=== PATIENT | male | born 1975 | race Caucasian/White ===

== ENCOUNTER 2021-02-22 13:24 | Outpatient (RCR) | payer OTHER, SELFPAY | END 2021-05-07 23:59 | LOC: IMMUN 13:24 | PROVIDERS: PCP Nurse Practitioner Primary Care; Visit Provider Family Medicine | DX: Z23 Encounter for immunization (principal) | CPT/HCPCS: 0001A; 0002A; 91300 ==

== ENCOUNTER 2021-03-17 09:33 | Observation (INO) | payer OTHER, SELFPAY ==
[2021-03-14 12:25] VITALS: BMI 39.8
[2021-03-17] VITALS (7 sets, daily range): BP systolic 125–155; BP diastolic 72–98; PULSE 79–106; RESP 15–20; TEMP 36.7–38.3; O2SAT 93–99; BMI 39.7; BMI 39.8
--- NOTE | 2021-03-17 09:57 | CT_ITS ---
STUDY: CT SOFT TISSUE NECK WITH CONTRAST REASON FOR EXAM: Male, 45 years old. right tonsillar swelling RADIATION DOSAGE (If Supplied By Facility): CTDIvol = ( 18.78 ) mGy, DLP = ( 642.75 ) mGycm TECHNIQUE: The patient was scanned in a multi-detector CT scanner. High resolution transaxial imaging was performed following intravenous administration of IV 75mL Isovue-370. Sagittal and coronal images were reconstructed. Individualized dose optimization techniques were used for this CT. COMPARISON: None. FINDINGS: Normal bilateral parotid glands. Normal bilateral assistant oceanographer spaces. Normal bilateral parapharyngeal spaces. Normal bilateral carotid spaces. Normal bilateral sublingual and submandibular glands and spaces. Normal visualized nasopharynx. Normal retropharyngeal space. Normal perivertebral space. Enlargement of the right lingual tonsil containing a 1 cm round area of decreased attenuation worrisome for tonsillitis with a peritonsillar abscess. Mucosal thickening in the right side extends inferiorly into the hypopharynx. The visualized tongue, tongue base and oropharynx are normal. The visualized cervical lymph nodes (levels I-) are within normal size limits, and maintain normal morphology. There is no demonstrated solid or cystic mass lesion. There is no abnormal contrast enhancement. Normal epiglottis, bilateral vallecula and hypopharynx. The pre-epiglottic and paraglottic adipose spaces are normal. Normal visualized bilateral piriform sinuses, aryepiglottic folds, vocal cords, and arytenoid-cricoid articulations. Normal subglottic trachea. Normal bilateral lobes of the thyroid gland. Normal visualized pulmonary apices. Normal visualized paranasal sinuses. Normal visualized cervical spine. CT/Soft Tissue Neck WITH Contrast IMPRESSION: Right-sided tonsillitis with a 1 cm peritonsillar abscess. Electronically Signed: Buck Woodall MD at 11:58 EDT Tel , Service support ,
[2021-03-17 10:56] LABS: Absolute Lymphocyte Count 1.25 X10^3/uL (0.83-4.51); Absolute Neutrophil Count 8.2 X10^3/uL (2.0-7.7); Basophil# 0.04 X10^3/uL; Basophil% 0.4 % (0-1); Eosinophil# 0.01 X10^3/uL; Eosinophils% 0.1 % (0-5); Hemoglobin 13.6 g/dL (13.0-16.5); Lymphocyte # 1.25 X10^3/ul (0.83-4.51); Mean Corp Hgb Conc 32.4 g/dL (32-36); Mean Corpuscular Hgb 28.3 pg (27.0-32.0); Mean Corpuscular Volume 87.5 fL (80-94); Mean Platelet Vol. 9.8 fl (6.2-12.0); Monocyte% 8.6 % (0-10); NRBC Flagged by Analyzer 0 % (0-5); Neutrophil # 8.22 X10^3/uL (2.7-7.7); Neutrophil % 78.7 % (47-70); Platelet Count 202 K/mm3 (150-450); RBC Distribution Width CV 13.2 % (11.6-14.6); RBC Distribution Width SD 42.8 fl (35.1-43.9); White Blood Count 10.4 K/mm3 (4.4-11.0)
[2021-03-17] MEDS: Morphine 4 MG/ML Syringe IV (10:57)
[2021-03-17] MEDS: Ondansetron 4 MG/2 ML Vial IV (10:57)
[2021-03-17 11:05] LABS: Anion Gap 5 (5-15); BUN 14 mg/dL (7-18); BUN/Creat Ratio 10.4 RATIO (10-20); Calcium,Total 9.1 mg/dL (8.5-10.1); Chloride 106 mmol/L (98-107); Creatinine, Serum 1.34 mg/dL (0.70-1.30); EST Glomerular Filtration Rate 61 mL/min (>60); Est Glom Filt Rate - Afr Amer 74 mL/min (>60); Glucose 101 mg/dL (74-106); Potassium 3.9 mmol/L (3.5-5.1); Sodium Level 138 mmol/L (136-145)
--- NOTE | 2021-03-17 12:24 | ED.DCSUM_ITS ---
- ER Visit Summary Date of Service: 03/17/21 Chief Complaint: Sore throat History of Present Illness: The patient is a 45 M presenting with sore throat x2 days. Patient went to urgent care this morning and was sent to the ED for concern of tonsillar abscess. He complains of painful swallowing but no diffi culty swallowing, no drooling. Denies fever. Denies other complaints. Physical Examination: Vitals are stable. Patient is afebrile. Alert no acute distress. HEENT exam right tonsillar swelling. Neck is supple. Lungs are clear and equal bilaterally. Heart is regular rate and rhythm. Abdomen is soft nontender nondistended. Extremities are unremarkable. Skin is warm and dry. Remainder of exam is unremarkable. Emergency Department Course and Treatment: Patient states rapid strep at urgent care was negative. CBC, chemistries unremarkable. He was given IV fluids, morphine, Zofran. CT soft tissue neck shows right-sided tonsillitis with a 1 cm peritonsillar abscess. He continued to have pain was given Dilaudid IV. He was given Decadron, Unasyn. Repeat temperature is 100.9. He was given Tylenol. He is able to swallow only with a significant amount of pain. Discussed with Dr. Naik and the hospitalist and patient will be admitted for observation Disposition: Observation Impression: Peritonsillar abscess This note was generated with [employer] dictation software. It may contain incorrect words, spelling, and punctuation that were not noted in review of the chart prior to signing ED Disposition - Plan for ED Patient: Disposition: Acute Care [facility]
[2021-03-17] MEDS: 0.9% Normal Saline 1,000 ML 999 ML IV (12:48)
[2021-03-17] MEDS: HYDROmorphone 1 MG/ML Syringe IV (13:10)
[2021-03-17] MEDS: dexAMETHasone 4 MG Tablet PO (13:47)
[2021-03-17] MEDS: Acetaminophen 500 MG Tablet 1000 MG PO (14:05)
--- NOTE | 2021-03-17 14:39 | HP.PCM_ITS ---
<Ko Pepper - Last Filed: 03/17/21 14:39> Problem List (1) Peritoneal abscess Status: Acute (2) Tonsillitis Status: Acute (3) Lumbar radiculopathy Status: Chronic (4) Lumbar strain Status: Resolved History of Present Illness Date of Admission: 03/17/21 Chief Complaint: Right-sided neck swelling and sore throat Patient is a 45-year-old male who presents to the ED at [facility] on 03/17/2021 with a chief complaint of right-sided neck swelling and sore throat. Patient reports that for the past 2 days he has had increased neck swelling and sore throat that has been getting progressively worse. Patient reports that this morning he went to an urgent care clinic thinking that he might of had strep throat, rapid strep at the urgent care was negative. Patient denies anything making it worse and has denied trying any therapies to alleviate this pain by swelling. Vitals in the ED have been unremarkable; patient is afebrile, not tachycardic or tachypneic. CBC unremarkable. BMP reveals mildly elevated creatinine at 1.34, otherwise unremarkable. Soft tissue neck CT demons trated a right-sided tonsillitis with a 1 cm peritonsillar abscess. Unasyn initiated in the ED and patient will be admitted to medical surgical floor 3. Past Medical History Past Medical History (Chronic Problems): Chronic Problems (Last Reviewed 02/13/21 @ 09:27 by [place] Nino) Lumbar radiculopathy (Chronic) Allergies No Known Allergies Allergy (Verified 03/17/21 10:06) Home Medications: Ambulatory Orders Medication Instructions Recorded citalopram 20 mg tablet 40 mg PO DAILY 02/06/21 fenofibrate 40 mg tablet 145 mg PO DAILY 02/06/21 rosuvastatin 10 mg tablet 10 mg PO DAILY 02/06/21 Ergocalciferol [Vitamin D] 50,000 unit PO Q7D 03/17/21 Testosterone Cypionate [Testone 0.3 ml IM QWEEK 03/17/21 Cik] traZODone [Desyrel] 100 mg PO QHS 03/17/21 Surgical History: arthroscopy, knee Psychiatric History: Anxiety, Depression Smoking Status: Former smoker Alcohol: Occasional Drugs: None - *Family History Maternal History Items: Unknown - Patient unable to remember any maternal medical history Paternal History Items: Unknown - Patient unable to remember any paternal medical history Review of Systems Constitutional: Denies: Chills, Fever, Weight Change HEENT: Denies: Head Aches, Sinus Congestion, Sinus Drainage Cardiovascular: Denies: Chest Pain, Palpitations Respiratory: Denies: Cough, Shortness of breath at rest, Sputum production Gastrointestinal: Denies: Abdominal Pain, Nausea, Vomiting Genitourinary: Denies: Dysuria Musculoskeletal: Denies: Joint Pain, Joint Tenderness Skin: Denies: Rash, Wounds Neurological: Denies: Numbness, Tingling, Focal weakness Psychiatric: Denies: Anxiety, Depression, Homicidal Ideations, Suicidal Ideations Hematologic/ Lymphatic: Denies: Easy Bruising, Easy Bleeding VTE Information - Inpt Only VTE Present on Admission: No Patient Problems: Active and Suspected Problems (Last Reviewed 02/13/21 @ 09:27 by [place] Nino) Peritoneal abscess (Acute) Tonsillitis (Acute) Subjective: Patient is a 45-year-old male in no acute distress who is resting comfortably in bed, alert and oriented x3. Patient endorses a sore throat and right-sided neck swelling throughout his lower jaw. Denies fever, chills, N/V/D, chest pain, palpitations, shortness of breath, lower extremity pain. Objective: Clinical Impression(s) from Imaging Studies Soft Tissue Neck CT 03/17/21 09:57 IMPRESSION: Right-sided tonsillitis with a 1 cm peritonsillar abscess. Electronically Signed: Buck Woodall MD at 11:58 EDT Tel , Service support , - Physical Exam Vitals/I&O's: Vital Signs Temp Pulse Resp BP Pulse Ox 98.9 F 96 18 125/72 H 93 03/17/21 14:02 03/17/21 14:02 03/17/21 14:02 03/17/21 14:02 03/17/21 14:02 Oxygen Delivery Method Room Air Weight: 301 lb 5.95 oz Body Mass Index (BMI) 39.7 Intake and Output for Last 24 Hours 04/16/21 04/17/21 04/18/21 23:59 23:59 23:59 Intake Total 1000 / 1000 Balance 1000 / 1000 General: Alert, Oriented x3, Cooperative HEENT: Atraumatic, PERRLA, EOMI, Normocephalic Neck: Supple, No JVD, Negative Carotid Bruits, - - Mild swelling about the parotid, tonsillar, submental and submandibular nodes, pain to palpation about the same. Lungs: Clear to auscultation, Normal air movement Cardiovascular: Regular rate, No murmurs Abdomen: Bowel Sounds Present, Soft, Non Tender Extremities: No edema, Capillary Refill Less than 3 Seconds Skin: No rashes, No breakdown Musculoskeletal: No Tenderness to Palpation of Joints or Extremities Neurological: Cranial nerves II-XII grossly intact Psych/Mental Status: Normal Affect, Appropriate, Anxious Laboratory Results 03/17/21 10:45: WBC 10.4, RBC 4.80, Hgb 13.6, Hct 42.0, MCV 87.5, MCH 28.3, MCHC 32.4, RDW Std Deviation 42.8, RDW Coeff of Lida 13.2, Plt Count 202, MPV 9.8, Immature Gran % (Auto) 0.200, Neut % (Auto) 78.7 H, Lymph % (Auto) 12.0 L, [place] % (Auto) 8.6, Eos % (Auto) 0.1, Baso % (Auto) 0.4, Absolute Neuts (auto) 8.2 H, Absolute Lymphs (auto) 1.25, Nucleated RBC % 0 03/17/21 10:45: Sodium 138, Potassium 3.9, Chloride 106, Carbon Dioxide 27.0, Anion Gap 5, BUN 14, Creatinine 1.34 H, Estim Creat Clear Calc 79.50, Est GFR (MDRD) Af Amer 74, Est GFR (MDRD) Non-Af 61, BUN/Creatinine Ratio 10.4, Glucose 101, Calcium 9.1 Current Medications Ampicillin Sodium/Sulbactam (Sodium 3 gm/ Sodium Chloride) 112 mls @ 150 mls/hr IV X1 ONE Stop: 03/17/21 14:42 Last Admin: 03/17/21 14:06 Dose: 150 mls/hr Documented by: Assessment/Plan All Active Problems (Last Reviewed 02/13/21 @ 09:27 by [place] Nino) Peritoneal abscess (Acute) Tonsillitis (Acute) Lumbar strain (Resolved) Patient is a 45-year-old male who presents to the ED at [facility] on 03/17/2021 with a chief complaint of right-sided neck swelling and sore throat, that is getting progressively worse. Evaluation in the ED was significant for right-sided tonsillitis lightest with a 1 cm peritonsillar abscess by neck CT. Patient was initiated on Unasyn and a hospital medicine consultation was requested. On my evaluation patient appeared in no acute distress, however did demonstrate mild right-sided neck swelling and pain to palpation about the parotid, tonsillar, submandibular and submental nodes. Patient has remained afebrile and vitals have been unremarkable. BMP did reveal a mildly elevated creatinine of unclear etiology at 1.34. Patient reports no significant past medical history although previous medications include citalopram, fenofibrate, rosuvastatin, testosterone and vitamin D supplementation. Patient will be admitted to medical surgical floor for observation and Unasyn will be continued. Anticipate discharge tomorrow morning. 1) Peritonsillar abscess. Patient afebrile and vital signs stable. Confirmed by neck CT as above. CBC and BMP unremarkable. Swelling and pain to palpation about the right side of the neck. Mallampati class III, more likely related to patient's large body habitus. Plan; admit to medical surgical floor for observation, continue Unasyn. 2) Tonsillitis. Same as above 3) Elevated creatinine Creatinine currently 1.34, unclear etiology. Plan; continue IV fluids, BMP in the a.m. DVT prophylaxis -low risk, early ambulation advised Patient seen by Ko Pepper PA-C, under the supervision of Dr. Denney. <Shaji Denney F - Last Filed: 03/17/21 17:09> History of Present Illness The patient is a 45 year old M [] Past Medical History Allergies No Known Allergies Allergy (Verified 03/17/21 10:06) - Physical Exam Vitals/I&O's: Vital Signs Temp Pulse Resp BP Pulse Ox 98.0 F 92 18 145/75 H 97 03/17/21 16:49 03/17/21 15:01 03/17/21 15:01 03/17/21 15:01 03/17/21 15:01 Oxygen Delivery Method Room Air Weight: 302 lb 0.533 oz Body Mass Index (BMI) 39.8 Intake and Output for Last 24 Hours 03/15/21 03/16/21 03/17/21 23:59 23:59 23:59 Intake Total 1111 Balance 1111 Laboratory Results 03/17/21 10:45: WBC 10.4, RBC 4.80, Hgb 13.6, Hct 42.0, MCV 87.5, MCH 28.3, MCHC 32.4, RDW Std Deviation 42.8, RDW Coeff of [place] 13.2, Plt Count 202, MPV 9.8, Immature Gran % (Auto) 0.200, Neut % (Auto) 78.7 H, Lymph % (Auto) 12.0 L, [place] % (Auto) 8.6, Eos % (Auto) 0.1, Baso % (Auto) 0.4, Absolute Neuts (auto) 8.2 H, Absolute Lymphs (auto) 1.25, Nucleated RBC % 0 03/17/21 10:45: Sodium 138, Potassium 3.9, Chloride 106, Carbon Dioxide 27.0, Anion Gap 5, BUN 14, Creatinine 1.34 H, Estim Creat Clear Calc 79.50, Est GFR (MDRD) Af Amer 74, Est GFR (MDRD) Non-Af 61, BUN/Creatinine Ratio 10.4, Glucose 101, Calcium 9.1 Current Medications Acetaminophen (Acetaminophen 325 Mg Tablet) 650 mg PO Q6H PRN PRN PRN Reason: Pain Score 1-10/Temp > 100.7 F Atorvastatin Calcium (Atorvastatin Calcium 20 Mg Tablet) 20 mg PO QHS ANAND Citalopram Hydrobromide (Citalopram 40 Mg Tablet) 40 mg PO DAILY ANAND Fenofibrate (F[facility] 145 Mg Tablet) [facility] Sodium Chloride () 250 mls @ 15 mls/hr IV .[id number] PRN PRN Reason: Saline Flush Ampicillin Sodium/Sulbactam (Sodium 3 gm/ Sodium Chloride) 112 mls @ 150 mls/hr IV Q8 REPLACED BY [facility] Methylprednisolone (Methylprednisolone Dosepak 4 Mg Box) 16 mg PO 1700 ANAND; Taper Stop: 03/22/21 08:59 Last Admin: 03/17/21 16:51 Dose: 16 mg Documented by: Ondansetron HCl (Ondansetron 4 Mg/2 Ml Vial) 4 mg IV Q8H PRN PRN PRN Reason: NAUSEA/VOMITING Sodium Chloride (0.9% Saline Lock 10 Ml Syringe) 10 - 40 ml IV UD PRN PRN Reason: SALINE FLUSH Addendum: Dr. Denney I personally examined the patient and reviewed the chart. I agree with the above. 45-year-old male presents from home with a sore throat. It started about 2 days ago, he is a [id number] at home so he went to the urgent care for evaluation and states that he was told that it did not have strep throat. He was told to come to the ER because of the swelling in the back of his throat he had a CT scan of his neck demonstrated a 1 cm right peritonsillar abscess. He has soreness with swallowing and there is concern by the ED physician that he would not be able to take oral medications so they recommended admission to him. I discussed with him that he is an observation admission only and will likely need to be discharged home tomorrow. In the meantime we will place him on IV Unasyn as well as a Medrol Dosepak to try to decrease swelling and will consult ENT for observation and follow-up. Otherwise he feels fine and denies any fevers or chills. OBSV E&M: [id number] Initial observation care L2
[2021-03-17] MEDS: MethylPREDNISolone DosePak 4 MG BOX PO ×2 (16:51→21:19)
[2021-03-17] MEDS: Acetaminophen 325 MG Tablet 650 MG PO (21:16)
[2021-03-17] MEDS: 0.9% Saline Lock 10 ML Syringe IV (21:16)
[2021-03-17] MEDS: Ketorolac 15 MG/ML Vial IV (21:16)
[2021-03-17] MEDS: Atorvastatin Calcium 20 MG Tablet PO (21:20)
[2021-03-17] MEDS: Fenofibrate 145 MG Tablet PO (22:35)
[2021-03-17] MEDS: traZODone 100 MG Tablet PO (22:35)
[2021-03-17] MEDS: Citalopram 40 MG TABLET PO (22:35)
[2021-03-18 02:53] VITALS: BP 104/65; PULSE 52; RESP 18; TEMP 36.4; O2SAT 95
[2021-03-18] MEDS: 0.9% Saline Lock 10 ML Syringe IV ×2 (05:22→13:40)
[2021-03-18 07:05] LABS: Absolute Neutrophil Count 9.9 X10^3/uL (2.0-7.7); Basophil# 0.01 X10^3/uL; Basophil% 0.1 % (0-1); Hematocrit 41.9 % (40-54); Hemoglobin 13.4 g/dL (13.0-16.5); Lymphocyte % 6.3 % (19-41); Mean Corpuscular Hgb 28.6 pg (27.0-32.0); Mean Corpuscular Volume 89.5 fL (80-94); Mean Platelet Vol. 10.3 fl (6.2-12.0); Monocyte# 0.44 X10^3/uL; NRBC Flagged by Analyzer 0 % (0-5); Neutrophil # 9.93 X10^3/uL (2.7-7.7); Neutrophil % 89.2 % (47-70); Platelet Count 214 K/mm3 (150-450); RBC Distribution Width CV 12.9 % (11.6-14.6); RBC Distribution Width SD 42.3 fl (35.1-43.9); Red Blood Count 4.68 M/mm3 (4.6-6.2); White Blood Count 11.1 K/mm3 (4.4-11.0)
[2021-03-18 07:28] LABS: Anion Gap 7 (5-15); BUN 19 mg/dL (7-18); BUN/Creat Ratio 15.4 RATIO (10-20); Calcium,Total 9.5 mg/dL (8.5-10.1); Chloride 103 mmol/L (98-107); Creatinine, Serum 1.23 mg/dL (0.70-1.30); EST Glomerular Filtration Rate 68 mL/min (>60); Est Glom Filt Rate - Afr Amer 82 mL/min (>60); Estimated Creatinine Clearance 86.61 ml/min; Glucose 131 mg/dL (74-106); Potassium 4.1 mmol/L (3.5-5.1); Sodium Level 136 mmol/L (136-145)
[2021-03-18 09:00] VITALS: BP 117/70; PULSE 85; RESP 18; TEMP 36.5; O2SAT 95
[2021-03-18] MEDS: MethylPREDNISolone DosePak 4 MG BOX PO ×2 (09:01→12:32)
--- NOTE | 2021-03-18 12:54 | DCINST_ITS ---
- Discharge Diagnoses Current Active Problems: Current Active and Chronic Problems (Last Reviewed 02/13/21 @ 09:27 by [place] Nino) Peritoneal abscess (Acute) Tonsillitis (Acute) Lumbar radiculopathy (Chronic) You will use the following diet at home:: No restrictions Your food should be the consistency of: Regular Your liquids should be the consistency of: Regular/Thin Discharge Activity: Return to Normal Activity Allergies/Adverse Reactions: Allergies No Known Allergies Allergy (Verified 03/17/21 10:06) Medications to take at Discharge citalopram 20 mg tablet 40 mg PO DAILY 02/06/21 fenofibrate 40 mg tablet 145 mg PO DAILY 02/06/21 rosuvastatin 10 mg tablet 10 mg PO DAILY 02/06/21 Ergocalciferol [Vitamin D] 50,000 unit PO Q7D 03/17/21 Testosterone Cypionate [Testone Cik] 0.3 ml IM QWEEK 03/17/21 traZODone [Desyrel] 100 mg PO QHS 03/17/21 Amox/Clavulanate Tablet [Augmentin Tablet] 875 mg PO Q12H #20 tab 03/18/21 The following prescriptions were given: Amox/Clavulanate Tablet [Augmentin Tablet] 875 mg PO Q12H #20 tab Transmission Status: Pending to [facility]/pharmacy #[id number] Primary Care Physician: Tamra Pena NP, [employer]BI[employer]PLICATION DEVELOPER-C [Primary Care Provider] - Please follow up with your Primary Care Physician in: Within the next 2 weeks Test Results: Test results from this visit will be discussed in further detail at your follow- up appointment, if applicable. Proposed Discharge Date: 03/18/21
--- NOTE | 2021-03-18 12:56 | PCM.DC.SUM ---
Discharge Date and Diagnosis - Problem List Patient Problems: Active and Suspected Problems (Last Reviewed 02/13/21 @ 09:27 by Jamaica Nino) Peritoneal abscess (Acute) Tonsillitis (Acute) Date of Admission: 03/17/21 Date of Discharge: 03/18/21 - Primary Discharge Diagnosis Acute Problems: Active Problems (Last Reviewed 02/13/21 @ 09:27 by Jamaica Nino) Peritoneal abscess (Acute) Tonsillitis (Acute) - Secondary Discharge Diagnosis Chronic Problems: Chronic Problems (Last Reviewed 02/13/21 @ 09:27 by Jamaica Nino) Lumbar radiculopathy (Chronic) Hospital Course and Treatment Imaging Results: Clinical Impression(s) from Imaging Studies Soft Tissue Neck CT 03/17/21 09:57 IMPRESSION: Right-sided tonsillitis with a 1 cm peritonsillar abscess. Electronically Signed: Buck Woodall MD at 11:58 EDT Tel , Service support , Summary of Care Provided: Patient is a 45-year-old male who presented to the ED at [facility] on 03/17/2021 with a chief complaint of right-sided neck swelling and progressively worsening sore throat. CT demonstrated right-sided tonsillitis lightest with a 1 cm peritonsillar abscess. Patient reports significant improvement from yesterday regarding his sore throat and swollen neck. Physical exam confirms the same and patient appears to be responding well to antibiotics. CBC and BMP unremarkable. Vital signs stable throughout admission. Considering the patient's improvement in symptoms and lack of any other symptomology, ENT consult was canceled. Patient to be discharged today on Augmentin 875 twice daily x 10 days. 1) Peritonsillar abscess. Patient afebrile and vital signs stable. Swelling about the parotid, tonsillar, submandibular and submental nodes has decreased significantly since admission. CBC and BMP unremarkable. Plan; discharge today after antibiotic infusion is complete, Augmentin 875 twice daily x10 days initiated at discharge, follow-up with primary care provider within the next 2 weeks. 2) Tonsillitis. Same as above 3) Elevated creatinine Resolvd, creatinine currently 1.23. Patient seen by Ko Pepper PA-C, under the supervision of Dr. Galvan. Patient Problems: Active and Suspected Problems (Last Reviewed 02/13/21 @ 09:27 by [place] Nino) Peritoneal abscess (Acute) Tonsillitis (Acute) Subjective: Patient is a 45-year-old male comes the resting in bed, alert and oriented x3. Patient reports significant improvement of his symptoms; related to his neck swelling. Patient still does endorse mild sore throat, but patient understands that this will resolve over the next few days. Denies fever, chills, N/V/D, chest pain, palpitations, shortness of breath. - Physical Exam Vitals/I&O's: Vital Signs Temp Pulse Resp BP Pulse Ox 97.7 F L 85 18 117/70 95 03/18/21 09:00 03/18/21 09:00 03/18/21 09:00 03/18/21 09:00 03/18/21 09:00 Oxygen Delivery Method Room Air Weight: 302 lb 0.533 oz Body Mass Index (BMI) 39.8 Intake and Output for Last 24 Hours 03/16/21 03/17/21 03/18/21 23:59 23:59 23:59 Intake Total 1724 / 1724 462 / 462 Balance 1724 / 1724 462 / 462 General: Alert, Oriented x3, Cooperative HEENT: Atraumatic, PERRLA, EOMI, Normocephalic Neck: Supple, No JVD, Negative Carotid Bruits, - - Swelling about the parotid, tonsillar, submental and submandibular nodes significantly decreased from admission. Lungs: Clear to auscultation, Normal air movement Cardiovascular: Regular rate, No murmurs Abdomen: Bowel Sounds Present, Soft, Non Tender Extremities: No edema, Capillary Refill Less than 3 Seconds Skin: No rashes, No breakdown Musculoskeletal: No Tenderness to Palpation of Joints or Extremities Neurological: Cranial nerves II-XII grossly intact Psych/Mental Status: Normal Affect, Appropriate Laboratory Results 03/18/21 06:40: WBC 11.1 H, RBC 4.68, Hgb 13.4, Hct 41.9, MCV 89.5, MCH 28.6, MCHC 32.0, RDW Std Deviation 42.3, RDW Coeff of Lida 12.9, Plt Count 214, MPV 10.3, Immature Gran % (Auto) 0.400, Neut % (Auto) 89.2 H, Lymph % (Auto) 6.3 L, Becker % (Auto) 4.0, Eos % (Auto) 0.0, Baso % (Auto) 0.1, Absolute Neuts (auto) 9.9 H, Absolute Lymphs (auto) 0.70 L, Nucleated RBC % 0 03/18/21 06:40: Sodium 136, Potassium 4.1, Chloride 103, Carbon Dioxide 26.0, Anion Gap 7, BUN 19 H, Creatinine 1.23, Estim Creat Clear Calc 86.61, Est GFR (MDRD) Af Amer 82, Est GFR (MDRD) Non-Af 68, BUN/Creatinine Ratio 15.4, Glucose 131 H, Calcium 9.5 Current Medications Acetaminophen (Acetaminophen 325 Mg Tablet) 650 mg PO Q6H PRN PRN PRN Reason: Pain Score 1-10/Temp > 100.7 F Last Admin: 03/17/21 21:16 Dose: 650 mg Documented by: Atorvastatin Calcium (Atorvastatin Calcium 20 Mg Tablet) 20 mg PO QHS [facility] Last Admin: 03/17/21 21:20 Dose: 20 mg Documented by: Citalopram Hydrobromide (Citalopram 40 Mg Tablet) 40 mg PO DAILY@2200 [facility] Last Admin: 03/17/21 22:35 Dose: 40 mg Documented by: Fenofibrate (Fenofibrate 145 Mg Tablet) 145 mg PO DAILY@2200 [facility] Last Admin: 03/17/21 22:35 Dose: 145 mg Documented by: Sodium Chloride () 250 mls @ 15 mls/hr IV .[id number] PRN PRN Reason: Saline Flush Ampicillin Sodium/Sulbactam (Sodium 3 gm/ Sodium Chloride) 112 mls @ 150 mls/hr IV Q8 [facility] Last Infusion: 03/18/21 06:07 Dose: Infused Documented by: Methylprednisolone (Methylprednisolone Dosepak 4 Mg Box) 4 mg PO 0800,1200,1700 [facility]; Taper Stop: 03/22/21 08:59 Last Admin: 03/18/21 12:32 Dose: 4 mg Documented by: Ondansetron HCl (Ondansetron 4 Mg/2 Ml Vial) 4 mg IV Q8H PRN PRN PRN Reason: NAUSEA/VOMITING Sodium Chloride (0.9% Saline Lock 10 Ml Syringe) 10 - 40 ml IV UD PRN PRN Reason: SALINE FLUSH Last Admin: 03/18/21 05:22 Dose: 10 ml Documented by: Trazodone HCl (Trazodone 100 Mg Tablet) 100 mg PO QHS [facility] Last Admin: 03/17/21 22:35 Dose: 100 mg Documented by: Discharge Diet: No Restrictions Discharge Activity: Return to Normal Activity Home Medications: Medications to take at Discharge citalopram 20 mg tablet 40 mg PO DAILY 02/06/21 fenofibrate 40 mg tablet 145 mg PO DAILY 02/06/21 rosuvastatin 10 mg tablet 10 mg PO DAILY 02/06/21 Ergocalciferol [Vitamin D] 50,000 unit PO Q7D 03/17/21 Testosterone Cypionate [Testone Cik] 0.3 ml IM QWEEK 03/17/21 traZODone [Desyrel] 100 mg PO QHS 03/17/21 Amox/Clavulanate Tablet [Augmentin Tablet] 875 mg PO Q12H #20 tab 03/18/21 Following Prescriptions Were Given to Patient: Amox/Clavulanate Tablet [Augmentin Tablet] 875 mg PO Q12H #20 tab Transmission Status: Pending to [id number] Primary Care Physician: Tamra Pena NP, [employer] [Primary Care Provider] - Please follow up with your Primary Care Physician in: Within the next 2 weeks Disposition: Home Minutes spent on discharge:: 35 Patient Condition:: Good Medical Necessity - Tobacco Use Smoking Status: Former smoker Tobacco Use: Cigarettes Meaningful Use Info Meaningful Use Diagnoses (Choose all that apply): None applicable
[2021-03-18 13:46] VITALS: BP 125/77; PULSE 82; RESP 18; TEMP 36.9; O2SAT 95
[2021-03-18 15:05] VITALS: BP 125/77; PULSE 82; RESP 18; TEMP 36.9; O2SAT 95
--- NOTE | 2021-03-18 15:20 | PHA.DC.MR ---
Pharmacy Service has performed discharge medication reconciliation for this patient. The patient's discharge medication list was reviewed for discrepancies and discrepancies were resolved. Home Medications citalopram 20 mg tablet 40 mg PO DAILY 02/06/21 fenofibrate 40 mg tablet 145 mg PO DAILY 02/06/21 rosuvastatin 10 mg tablet 10 mg PO DAILY 02/06/21 Ergocalciferol [Vitamin D] 50,000 unit PO Q7D 03/17/21 Testosterone Cypionate [Testone Cik] 0.3 ml IM QWEEK 03/17/21 traZODone [Desyrel] 100 mg PO QHS 03/17/21 Amox/Clavulanate Tablet [Augmentin Tablet] 875 mg PO Q12H #20 tab 03/18/21
== END 2021-03-18 15:05 | disposition home or self-care (01) ==
LOC: ED 10:01 → MS3 14:31
PROVIDERS: Admitting Provider Family Medicine; Emergency Provider Emergency Medicine; PCP Nurse Practitioner Primary Care; Visit Provider Internal Medicine
DX: K65.1 Peritoneal abscess (principal); M54.16 Radiculopathy, lumbar region; Z79.899 Other long term (current) drug therapy; F41.9 Anxiety disorder, unspecified; F32.9 Major depressive disorder, single episode, unspecified; Z87.891 Personal history of nicotine dependence; R79.89 Other specified abnormal findings of blood chemistry
CPT/HCPCS: 70491; 80048; 85025; 96365; 96366; 96375; 99218; 99285; J7030; Q9967; A4216; G0378; J0295; J2405

== ENCOUNTER → 2021-04-30 10:49 | Outpatient (CLI) | payer OTHER, SELFPAY ==
[2021-04-11 10:44] VITALS: BMI 39.8
--- NOTE | 2021-04-30 10:52 | EKG12_ITS ---
Test Reason : PRE-OP Blood Pressure : / mmHG Vent. Rate : 064 BPM Atrial Rate : 064 BPM P-R Int : 216 ms QRS Dur : 080 ms QT Int : 394 ms P-R-T Axes : 045 019 005 degrees QTc Int : 406 ms Sinus rhythm with 1st degree A-V block Nonspecific T wave abnormality Abnormal ECG Confirmed by VAISHNAVI PINO, CAM ([id number]), technical editor CARIE ARGUETA ([id number]) on 05/01/2021 1:04:10 PM Referred By: Martin Esparza Confirmed By:CAM RIGGINS MD
[2021-04-30 11:54] LABS: Hematocrit 44.2 % (40-54); Hemoglobin 14.3 g/dL (13.0-16.5); Mean Corp Hgb Conc 32.4 g/dL (32-36); Mean Corpuscular Hgb 28.6 pg (27.0-32.0); Mean Corpuscular Volume 88.4 fL (80-94); Mean Platelet Vol. 10.6 fl (6.2-12.0); Platelet Count 232 K/mm3 (150-450); RBC Distribution Width CV 13.2 % (11.6-14.6); RBC Distribution Width SD 42.6 fl (35.1-43.9); White Blood Count 5.2 K/mm3 (4.4-11.0)
[2021-04-30 12:23] LABS: Anion Gap 5 (5-15); BUN 14 mg/dL (7-18); BUN/Creat Ratio 10.4 RATIO (10-20); Calcium,Total 9.2 mg/dL (8.5-10.1); Chloride 106 mmol/L (98-107); Creatinine, Serum 1.35 mg/dL (0.70-1.30); EST Glomerular Filtration Rate 61 mL/min (>60); Est Glom Filt Rate - Afr Amer 74 mL/min (>60); Glucose 92 mg/dL (74-106); Potassium 3.9 mmol/L (3.5-5.1); Sodium Level 142 mmol/L (136-145)
== END ==
PROVIDERS: PCP Nurse Practitioner Primary Care; Referring Provider Urology; Visit Provider Urology
DX: Z01.810 Encounter for preprocedural cardiovascular examination (principal); E78.00 Pure hypercholesterolemia, unspecified
CPT/HCPCS: 36415; 80048; 85027; 93005

== ENCOUNTER 2021-05-02 12:00 | Outpatient (RCR) | payer OTHER, SELFPAY ==
[2021-02-06 09:36] VITALS: BMI 39.5
--- NOTE | 2021-03-01 10:59 | HP.PTEVAL ---
Patient's Visit Information FLEX GRANT is a 45 year old M referred to Physical Therapy by MERCEDES Gale with a diagnosis of lumbar muscle strain and radiculopathy of lumbar region. Date of Evaluation: 02/27/21 Physical Therapist: Jason Shields DPT - Visit Plan Frequency: 2-3x /Week Duration: 4 Weeks Plan: Start with extension progression (prone, prone prop, REIL/SHARIF), add in supine nerve glides bilaterally. May use modalities in prone position as needed. Progress core control/strengthening as he improves. 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 - Subjective Pt. is here today for his initial evaluation with diagnosis of lumbar muscle strain and radiculopathy of lumbar region. Pt. works for a [employer]. Pt. 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 He felt instant pain in his back. Injury occured ~3 weeks ago. He has been doing some stretching at home. 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 Pt. Reports not much change in his low back pain since injury. He eyal lifting restriction of 10# currentlt. He does report intemittnet N/T in both legs, but not frequently. Most of his pain is at lumbar spine. No saddle region pain, no changes in B/B. Pt. has been having trouble sleeping. Increases pain: bending fwrd, sitting, lifting any thing. Decreases pain: ice, changing positions. Pt. is hopeful to reduce symptoms in order to get back to all recreational and work activities without limitations. - Pain lumbar spine Pain Intensity (Out of 10): 5 Pain Intensity Range: 2, 8 - Objective POSTURE: Pt. has slight R lateral shifting in stance. Pt. has equal iliac crest hieghts. Pt. has slight forward lean. PALPATION: No pain throuhgout BLEs. Pt. has increased symptoms with spring testing to L4-S1 hypomobility noted. NEURO: Normal sensation in BLEs, normal DTR of B achilles and patellar tendons. ROM: Lumbar spine: flexion mod loss increase NW, extension mod loss increase NW, SB min loss B increase NW, rotation min loss bilat increase NW. B hips- normal flexion, tight extension, normal IR, tight with ER. MMT: RLE: ankle/knee 5/5 throughout; hip- flexion 4+/5, abd 4/5, ext 4+/5. LLE- ankle/knee 5/5 throughout; hip- flexion 4+/5, abd 4/5, ext 4+/5. Core strength- poor. GAIT: Pt. ambulates with decreased arm swing bilaterally. Slight R hip lateral translation. Decreased hip extension bilaterally. STAIRS: step to pattern with 2 HR. - Special Tests L/S Slump test left side: Negative L/S Slump test right side: Negative L/S Left Straight Leg Raise: Negative L/S Right Straight Leg Raise: Positive Lumbar Standing: Flexion - Mechanical Response: No effect Lumbar Standing: Flexion - Symptoms During Testing: Increases Lumbar Standing: Flexion - Symptoms After Testing: Worse Lumbar Standing: Extension - Mechanical Response: No effect Lumbar Standing: Extension - Symptoms During Testing: Increases Lumbar Standing: Extension - Symptoms After Testing: No worse Lumbar Standing: Right Side Glides - Mechanical Response: No effect Lumbar Standing: Right Side [place] - Symptoms During Testing: Increases Lumbar Standing: Right Side [place] - Symptoms After Testing: No worse Lumbar Standing: Left Side [place] - Mechanical Response: No effect Lumbar Standing: Left Side [place] - Symptoms During Testing: Increases Lumbar Standing: Left Side [place] - Symptoms After Testing: No worse Lumbar Lying: Flexion - Mechanical Response: No effect Lumbar Lying: Flexion - Symptoms During Testing: No effect Lumbar Lying: Flexion - Symptoms After Testing: No effect Lumbar Lying: Extension - Symptoms During Testing: Decreases Lumbar Lying: Extension - Symptoms After Testing: Better - Goals Goal 1:: LTG: Pt. to be I with HEP. Goal Time Frame: 4-6 Weeks Goal 2:: STG: Pt. to be able to sleep throughout the night without increase in symptoms. Goal Time Frame: 2 Weeks Goal 3:: STG: Pt. to be able to sit for 30 minutes without increase in symptoms. Goal Time Frame: 2-4 Weeks Goal 4:: LTG: Pt. to have increased lumbar ROM by 50% without increase in symptoms. Goal Time Frame: 2-4 Weeks Goal 5:: LTG: Pt. to have no radicular pain in either LE. Goal Time Frame: 2-4 Weeks Goal 6:: LTG: pt. to return to work activities without increase in symptoms. - Rehabilitation Potential Physical Therapy Diagnosis: Pt. has signs and symptoms consistent with lumbar muscle strain and radiculopathy of lumbar region. Pt. has hypomobility at lumbar spine, increased pain in lumbar spine and increased pain with all daily activities. Pt. would benefit from PT to address the above issues progressing back to all work and recreational activities without limitations. Rehabilitation Potential: Good - Anticipated Interventions Patient/Client Instruction: Educate patient on: Condition, Plan of Care, Risk Factors, Benefits of Fitness Program For the Purpose of:: To facilitate caregiver knowledge, To improve self management, To prevent re-injury, To improve ability to perform tasks related to life management, To improve tolerance to ADL's Therapeutic Exercise to Include: Strength training, Power training, Endurance training, Body mechanics, Postural training, Flexibilty training, Passive ROM, Active ROM, Dynamic Lumbar Stabilization, Ignacio Exercises For the Purpose of:: To decrease pain, To decrease swelling/inflammation, To increase ROM, To improve nutrient delivery to tissue, To increase oxygenation perfusion, To improve muscle performance and motor function, To improve ability to perform ADL's, To improve health of tissue, To decrease soft tissue restriction, To increase flexibility/ROM Manual Therapy Techniques to Include: Mobilization, Manipulation, Passive ROM, Soft tissue mobilization For the Purpose of:: To decrease pain, To decrease swelling/inflammation, To increase ROM, To improve nutrient delivery to tissue, To increase oxygenation perfusion, To improve muscle performance and motor function, To improve ability to perform ADL's, To increase tolerance to activity/condition/position, To improve performance and independence with ADL's IF ES: Yes Cryotherapy (ice pack, ice massage): Yes Ultrasound (thermal/non thermal): Yes For the Purpose of:: To decrease pain, To decrease swelling/inflammation, To increase ROM, To improve nutrient delivery to tissue Thank you for the opportunity to evaluate your patient. For Medicare and Medicare HMO plans, please review the plan of care and approve it. It will need to be FAXED BACK to us at [phone] for Medicare purposes. For Medicare only, by signing this I certify the plan of care. Please let me know if there are questions or concerns regarding this plan of care. Physician Signature: Date:
--- NOTE | 2021-03-28 15:23 | HP.PTREVAL ---
MERCEDES Gale, It has been my pleasure to treat FLEX GRANT over the last 9 visits for lumbar muscle strain and radiculopathy of lumbar region. Please see the progress note below for an update on the physical therapy plan of care! Subjective: Pt. reports overall he is improving overall being about 50% better. He is no longer having pain going down his legs, but did have some symptoms picking up his sons toys the other day. Objective/Function: LUMBAR ROM: ext decrease no better, flexion min loss increase NW, SB nil loss bilat NE, rotation nil loss bilat NE. MMT: 5/5 strength thoughout BLEs, except 4/5 B hip flexion and abd, core strength poor+ and multifidus strength poor+. . Pt. has no N/T in either LE. Pt. has normal gait pattern, but does have slight loss of B arm swing. Pt. is progressing with strength and ROM. Plan Plan: Pt. to follow up with physician later today. I would recommend that he continue with PT with progression of extension motions and strengthening of core and multifidus musculature. Goals Goal 1:: LTG: Pt. to be I with HEP. Goal Time Frame: 4-6 Weeks Goal 2:: STG: Pt. to be able to sleep throughout the night without increase in symptoms. Goal Time Frame: 2 Weeks Goal Progress: Progressing Goal 3:: STG: Pt. to be able to sit for 30 minutes without increase in symptoms. Goal Time Frame: 2-4 Weeks Goal Progress: Goal Met Goal 4:: LTG: Pt. to have increased lumbar ROM by 50% without increase in symptoms. Goal Time Frame: 2-4 Weeks Goal Progress: Progressing Goal 5:: LTG: Pt. to have no radicular pain in either LE. Goal Time Frame: 2-4 Weeks Goal Progress: Goal Met Goal 6:: LTG: pt. to return to work activities without increase in symptoms. Goal Progress: Progressing Anticipated Interventions Patient/Client Instruction: Educate patient on: Condition, Plan of Care, Risk Factors, Benefits of Fitness Program For the Purpose of:: To facilitate caregiver knowledge, To improve self management, To prevent re-injury, To improve ability to perform tasks related to life management, To improve tolerance to ADL's Therapeutic Exercise to Include: Strength training, Power training, Endurance training, Body mechanics, Postural training, Flexibilty training, Passive ROM, Active ROM, Dynamic Lumbar Stabilization, Ignacio Exercises For the Purpose of:: To decrease pain, To decrease swelling/inflammation, To increase ROM, To improve nutrient delivery to tissue, To increase oxygenation perfusion, To improve muscle performance and motor function, To improve ability to perform ADL's, To improve health of tissue, To decrease soft tissue restriction, To increase flexibility/ROM Manual Therapy Techniques to Include: Mobilization, Manipulation, Passive ROM, Soft tissue mobilization For the Purpose of:: To decrease pain, To decrease swelling/inflammation, To increase ROM, To improve nutrient delivery to tissue, To increase oxygenation perfusion, To improve muscle performance and motor function, To improve ability to perform ADL's, To increase tolerance to activity/condition/position, To improve performance and independence with ADL's IF ES: Yes Cryotherapy (ice pack, ice massage): Yes Ultrasound (thermal/non thermal): Yes For the Purpose of:: To decrease pain, To decrease swelling/inflammation, To increase ROM, To improve nutrient delivery to tissue Please do not hesitate to contact me at [phone] by phone or if you have questions or concerns regarding this new plan of care! Sincerely, Jason Shields DPT
== END 2021-05-02 19:00 | disposition home or self-care (01) ==
LOC: PT 12:00
PROVIDERS: PCP Nurse Practitioner Primary Care; Referring Provider Physician Assistant; Visit Provider Physician Assistant
DX: S39.012D Strain of muscle, fascia and tendon of lower back, subsequent encounter (principal); M54.16 Radiculopathy, lumbar region
CPT/HCPCS: 97014; 97035; 97110; 97140; 97161; 97164; G0283

== ENCOUNTER → 2023-03-13 | Outpatient (CLI) | payer BC, SELFPAY ==
[2023-03-13 10:26] LABS: Absolute Neutrophil Count 3.3 X10^3/uL (2.0-7.7); Basophil# 0.06 X10^3/uL; Basophil% 1.2 % (0-1); Eosinophil# 0.08 X10^3/uL; Eosinophils% 1.5 % (0-5); Hematocrit 46.3 % (40-54); Hemoglobin 14.8 g/dL (13.0-16.5); Lymphocyte % 26.9 % (19-41); Mean Corpuscular Hgb 28.7 pg (27.0-32.0); Mean Corpuscular Volume 89.9 fL (80-94); Mean Platelet Vol. 10.3 fl (6.2-12.0); Monocyte# 0.36 X10^3/uL; Monocyte% 6.9 % (0-10); NRBC Flagged by Analyzer 0 % (0-5); Neutrophil # 3.27 X10^3/uL (2.7-7.7); Neutrophil % 62.7 % (47-70); Platelet Count 239 K/mm3 (150-450); RBC Distribution Width CV 12.9 % (11.6-14.6); RBC Distribution Width SD 42.6 fl (35.1-43.9); Red Blood Count 5.15 M/mm3 (4.6-6.2); White Blood Count 5.2 K/mm3 (4.4-11.0)
[2023-03-13 11:13] LABS: Hemoglobin A1c 5.6 % (3.8-5.6)
[2023-03-13 12:26] LABS: Follicle Stimulating Hormone 2.2 mIU/mL; Luteinizing Hormone 2.6 mIU/mL; PSA,Total- Diagnostic 0.73 ng/mL (0.0-4.0)
[2023-03-20 11:09] LABS: Testosterone, % Free 2.35 % (1.50-4.20); Testosterone, Free 7.24 ng/dL (5.00-21.00); Testosterone, Total 308 ng/dL (264-916)
== END | disposition home or self-care (01) ==
PROVIDERS: PCP Nurse Practitioner Primary Care; Referring Provider Internal Medicine Endocrinology, Diabetes & Metabolism; Visit Provider Internal Medicine Endocrinology, Diabetes & Metabolism
DX: R79.89 Other specified abnormal findings of blood chemistry (principal); R73.09 Other abnormal glucose
CPT/HCPCS: 36415; 83001; 83002; 83036; 84153; 84402; 84403; 85025

== ENCOUNTER → 2023-07-31 | Outpatient (CLI) | payer OTHER, SELFPAY ==
--- NOTE | 2023-07-31 09:56 | RAD_ITS ---
STUDY: X-RAY - RIGHT ELBOW REASON FOR EXAM: Male, 48 years old. Right elbow pain following recent injury. TECHNIQUE: 3 view(s) of the elbow. COMPARISON: None. FINDINGS: Normal visualized humerus, radius and ulna. Normal radiocapitellar and ulnotrochlear articulations. The soft tissue structures are unremarkable. RAD/Elbow min 3 Views IMPRESSION: Normal x-ray examination of the elbow. Electronically Signed: Josemanuel Downing MD at 11:02 EDT ,
== END | disposition home or self-care (01) ==
PROVIDERS: PCP Nurse Practitioner Primary Care; Referring Provider Physician Assistant Surgical; Visit Provider Physician Assistant Surgical
DX: S56.911A Strain of unspecified muscles, fascia and tendons at forearm level, right arm, initial encounter (principal)
CPT/HCPCS: 73080

== ENCOUNTER 2023-09-29 08:30 | Outpatient (RCR) | payer OTHER, BC, SELFPAY ==
--- NOTE | 2023-08-20 12:27 | HP.OTEVAL_ITS ---
Patient's Visit Information Visit Information Visit Information: FLEX GRANT is a 48 year old M, referred to Occupational Therapy by MERCEDES Galarza, with a diagnosis of right elbow/forearm strain. Date of Evaluation: 08/20/23 Occupational Therapist: RENARD Moraes/[place], CHT Subjective Subjective: This 48 year old male was seen for OT eval with dx of right elbow and forearm strain- DOI was on 2022. pt states he works for [employer]- pt states he was hooking up a trailer and the crank to lift support legs was more difficult, pt states he noticed right elbow started hurting. Works typically 70 hours a week. Pt states since he turned in claim 2022 pt turned in injury to workers comp- pt is currently off work. 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# left 105# Sensation Sensation Comments: denies Special Tests Lat Epiconylitis - as named: right elbow positive Quick DASH-Disab of Arm,Shoulder& Hand Quick DASH Score: 78.3325 Goals Goal:: pt will demo a increase in 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 Goal:: pt will self report quick dash sum to less than 20 by d/c Goal:: Pt will demo understanding of using supportive bracing 80% of workday/ADLS to decrease stress on tendon origin to allow healing and decrease pain by end of 2nd session. Rehabilitation General Assessment: pt demo with right elbow pain limiting the ability to perform ADLs and work tasks- currently conservative heat and light ROM has not changed pts pain level- pt would like to return to work. Pt would benefit from skilled OT services 3x week for 4-6 weeks to decrease pts pain and return pt to PLOF to participate in work tasks. Today therapist ed. pt on right cock-up wrist brace and counter force brace to decrease stress on lat. epi region. therapist also ed. pt on light forearm stretch - pt demo understanding and agree to POC. Rehabilitation Potential: Good Anticipated Interventions Anticipated Interventions: A/AAROM/PROM, Triggerpoint Release, Modalities, Education re Diagnosis and Home Program Visit Plan Frequency: 3x /Week Duration: 4 Weeks TEXT: Thank you for the opportunity to evaluate your patient. For Medicare and Medicare HMO plans, please review the plan of care and approve it. It will need to be FAXED BACK to us at [phone] for Medicare purposes. Please let me know if there are questions or concerns regarding this plan of care. Physician Signatur e: Date:
--- NOTE | 2023-09-16 09:01 | OTREVAL_ITS ---
Re-Evaluation Intro: MERCEDES Galarza, It has been my pleasure to treat FLEX GRANT over the last 6 visits for right elbow/forearm strain. Please see the progress note below for an update on the occupational therapy plan of care! 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 pt states he is feeling better. palpation to lateral epi is better. pain not as bad Plan Plan Frequency: 3x /Week Duration: 4 Weeks (pt has 6 more visits ) Visits in this POC: 12 Plan: if pts pain level decreases will initiate eccentric ex. 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 Goal:: pt will self report quick dash sum to less than 20 by d/c Goal:: Pt will demo understanding of using supportive bracing 80% of workday/ADLS to decrease stress on tendon origin to allow healing and decrease pain by end of 2nd session. Anticipated Interventions Anticipated Interventions Anticipated Interventions: A/AAROM/PROM, Triggerpoint Release, Modalities, Education re Diagnosis and Home Program Re-Evaluation Ending Re-evaluation ending: Please do not hesitate to contact me at [phone] by phone or if you have questions or concerns regarding this new plan of care! Sincerely, Kaylyn Will, RENARD/Esperanza, CHT
--- NOTE | 2023-09-29 08:47 | HP.OTDCSUM_ITS ---
Discharge Summary D/C Summary: It has been my pleasure to treat FLEX GRANT under orders from MERCEDES Galarza, for the diagnosis of right elbow/forearm strain for a total of 11 visit(s). Please see the following information for a summary of their discharge status. 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 (goal met) Goal:: pt will self report quick dash sum to less than 20 by d/c Goal:: Pt will demo understanding of using supportive bracing 80% of workday/ADLS to decrease stress on tendon origin to allow healing and decrease pain by end of 2nd session. (goal met) Plan Plan: if pts pain level decreases will initiate eccentric ex. cont with triggers point US D/C Information Discharge Comments: pt was seen for 11 OT therapy session with dx of right lateral epi. pt symptoms have resolved and pt states he has returned to 95% ability with right UE. pt feels he is ready to return to work. pt has met OT goals and is d/c. pt has bracing to use if he gets flair of pain. pt demo understanding of use. d/c sentence: If there are questions or concerns regarding this patient's occupational therapy, please fell free to call me at [phone]. Thank you for the referral of this patient. Sincerely, Kaylyn Will, OTR/L, CHT
== END 2023-09-29 12:57 | disposition home or self-care (01) ==
LOC: OT 08:30
PROVIDERS: PCP Nurse Practitioner Primary Care; Referring Provider Physician Assistant Surgical; Visit Provider Physician Assistant Surgical
DX: S56.911D Strain of unspecified muscles, fascia and tendons at forearm level, right arm, subsequent encounter (principal)
CPT/HCPCS: 97035; 97110; 97140; 97166; 97530